=== PATIENT | male | born 1985 | race Caucasian/White ===

== ENCOUNTER 2019-01-11 20:04 | Emergency (ER) | payer OTHER ==
[~2019-01-11] VITALS: Ht 182.9 cm; Wt 88.5 kg
[~2019-01-11 20:04] MED LIST: CARAFATE 1 GM TA1 GM PO; NOHOMEMEDICATIONS; PREVACID 24HR15 MG PO
[2019-01-11 21:16] LABS: ABSOLUTE BASOPHILS 0.1 thou/uL (0.0-0.2); ABSOLUTE EOSINOPHILS 0.5 thou/uL (0.0-0.7); ABSOLUTE LYMPHOCYTES 2.3 thou/uL (0.8-5.3); ABSOLUTE NEUTROPHILS 7.4 thou/uL (1.6-8.1); BASOPHILS 1.1 %; EOSINOPHILS 4.5 %; HEMATOCRIT 45.1 % (42.0-52.0); HEMOGLOBIN 15.8 gm/dL (14.0-18.0); LYMPHOCYTES 20.1 %; MCH 30.8 pg (26.0-34.0); MCV 87.9 fL (80.0-100.0); MONOCYTES 8.8 %; MPV 7.3 fl. (7.2-11.1); NUCLEATED RBCS 0 /100WBC; PLATELET COUNT* 316 thou/uL (150-400); POLYS 65.5 %; RBC 5.14 mil/uL (4.50-6.00); RDW-CV 12.4 % (10.5-14.5); WBC 11.3 thou/uL (4.0-11.0)
[2019-01-11 21:23] LABS: CALCIUM 9.4 mg/dL (8.5-10.1); CREATININE 1.1 mg/dL (0.6-1.3); MAGNESIUM 2.1 mg/dL (1.8-2.4); POTASSIUM 3.8 mmol/L (3.5-5.1)
[2019-01-11] MEDS ORDERED: NORCO 5-325 TA1 EAC1 PO (22:14)
[2019-01-11] MEDS ORDERED: ZANAFLEX4 MG PO (22:14)
[2019-01-11 22:28] VITALS: BP 145/78
== END 2019-01-11 22:29 | disposition home or self-care (01) ==
LOC: M.ERS 20:04
PROVIDERS: Nurse Practitioner Family
DX: M79.604 Pain in right leg (principal); F17.210 Nicotine dependence, cigarettes, uncomplicated; Z91.048 Other nonmedicinal substance allergy status